=== PATIENT | female | born 1945 | race Caucasian/White ===

== ENCOUNTER 2019-02-02 07:29 | Day surgery (SDC) | payer MEDICARE ==
[~2019-02-02] VITALS: Ht 170.2 cm; Wt 79.5 kg
[~2019-02-02 07:29] MED LIST: ASPI81CH PO; FISH1000; GLIM2 PO; LO-DOSE ASPIRIN81 MG PO; NORT25 PO; Prinivil10 MG PO; SITA100T2 PO; TRAM50 PO; VITAMINS
--- NOTE | 2019-02-02 08:32 | NUR ---
02/02/19 0832 Margarita Rivera CALL LIGHT WITHIN REACH
== END 2019-02-02 09:40 | disposition home or self-care (01) ==
LOC: ORSCSDS 07:29
PROVIDERS: Ophthalmology
PROC: 08RJ3JZ Replacement of Right Lens with Synthetic Substitute, Percutaneous Approach (ICD-10-PCS; principal; 2019-02-02 09:00)
DX: H25.11 Age-related nuclear cataract, right eye (principal); I10 Essential (primary) hypertension; E11.9 Type 2 diabetes mellitus without complications; Z79.899 Other long term (current) drug therapy
CPT/HCPCS: 82947; J2001; J2250; J3010; J3301; J7040; J7120; V2632

== ENCOUNTER 2019-02-16 07:23 | Day surgery (SDC) | payer MEDICARE ==
[~2019-02-16] VITALS: Ht 170.2 cm; Wt 79.8 kg
[2019-02-16] MEDS ORDERED: PREG100 PO (08:18)
[2019-02-16] MEDS ORDERED: Hair, Skin & N1 EACH PO (08:19)
[2019-02-16] MEDS ORDERED: CYAN1000I PO (08:19)
--- NOTE | 2019-02-16 08:26 | NUR ---
02/16/19 0826 Elsa Rich V PT RESTING IN BED, SIDE RAILS IN PLACE, CALL LIGHT WITHIN REACH, VSS. PT TEACHING COMPLETED.
== END 2019-02-16 11:04 | disposition home or self-care (01) ==
LOC: ORSCSDS 07:23
PROVIDERS: Ophthalmology
PROC: 08RK3JZ Replacement of Left Lens with Synthetic Substitute, Percutaneous Approach (ICD-10-PCS; principal; 2019-02-16 09:00)
DX: H25.12 Age-related nuclear cataract, left eye (principal); E11.36 Type 2 diabetes mellitus with diabetic cataract; Z79.82 Long term (current) use of aspirin; Z79.84 Long term (current) use of oral hypoglycemic drugs; Z79.899 Other long term (current) drug therapy
CPT/HCPCS: 82947; J2001; J2250; J3010; J3301; J7120; V2632

== ENCOUNTER 2020-07-09 10:32 | Day surgery (SDC) | payer MEDICARE ==
[~2020-07-09] VITALS: Ht 170.2 cm; Wt 78.7 kg
[~2020-07-09 10:32] MED LIST changes: +CYAN1000I PO; +Hair, Skin & N1 EACH PO; +PREG100 PO
--- NOTE | 2020-07-09 13:32 | NUR ---
07/09/20 1332 BILL MORATAYA PATIENT TO STEP DOWN - RECEIVED REPORT FROM BRIANNA MOTTA. PATIENT DENIES PAIN AT THIS TIME, DENIES NAUSEA/VOMITING. ASSISTED TO RECLINER. PT TOLERATING PO INTAKE. S.O. THOR TO BEDSIDE. VSS. PATIENT DENIES NEED FOR ORAL PAIN MEDICATIONS PRIOR TO DISCHARGE. ENGAGED IN DISCHARGE TEACHING AND ALL QUESTIONS ASKED AND ANSWERED. IV DC'D. PATIENT DRESSED WITH ASSISTANCE FROM S.O
== END 2020-07-09 13:32 | disposition home or self-care (01) ==
LOC: ORSCSDS 10:32
PROVIDERS: Podiatrist Foot & Ankle Surgery
PROC: 0QBR0ZZ Excision of Left Toe Phalanx, Open Approach (ICD-10-PCS; principal; 2020-07-09 12:00)
DX: M89.8X7 Other specified disorders of bone, ankle and foot (principal); L89.892 Pressure ulcer of other site, stage 2; I10 Essential (primary) hypertension; E78.5 Hyperlipidemia, unspecified; E11.40 Type 2 diabetes mellitus with diabetic neuropathy, unspecified; Z79.899 Other long term (current) drug therapy
CPT/HCPCS: 82947; J0690; J1100; J2250; J2405; J2704; J3010; J7120

== ENCOUNTER → 2021-12-30 | Outpatient (CLI) | payer MEDICARE ==
[2021-12-31 20:02] LABS: Creatinine, Urine Random 72.6 mg/dL (27.00-270.00); Microalb/Creat Ratio UR, Rand 9.518 mg/g (0.000-30.000); Microalbumin, Random Urine 6.91 mg/L (0.000-20.000)
== END | disposition home or self-care (01) ==
LOC: LAB SHORT 15:20 → LAB 15:20
PROVIDERS: Family Medicine
DX: E11.40 Type 2 diabetes mellitus with diabetic neuropathy, unspecified (principal); E78.2 Mixed hyperlipidemia; I10 Essential (primary) hypertension
CPT/HCPCS: 82043; 82570

== ENCOUNTER 2022-02-28 07:11 | Day surgery (SDC) | payer MEDICARE ==
[~2022-02-28] VITALS: Ht 170.2 cm; Wt 80.5 kg
== END 2022-02-28 09:45 | disposition home or self-care (01) ==
LOC: ORSCSDS 07:11
PROVIDERS: Surgery
PROC: 0DBP8ZX Excision of Rectum, Via Natural or Artificial Opening Endoscopic, Diagnostic (ICD-10-PCS; principal; 2022-02-28 08:30)
DX: Z12.11 Encounter for screening for malignant neoplasm of colon (principal); Z86.010 Personal history of colon polyps; D12.8 Benign neoplasm of rectum; E11.9 Type 2 diabetes mellitus without complications; K21.9 Gastro-esophageal reflux disease without esophagitis; E78.5 Hyperlipidemia, unspecified; I10 Essential (primary) hypertension; Z79.84 Long term (current) use of oral hypoglycemic drugs; Z79.899 Other long term (current) drug therapy
CPT/HCPCS: 82947; 88305; J2704; J7120

== ENCOUNTER → 2023-08-14 | Outpatient (CLI) | payer MEDICARE | LOC: LAB 20:20 → LAB SHORT 20:20 | DX: R30.0 Dysuria (principal) | CPT/HCPCS: 87077; 87086; 87186 ==

== ENCOUNTER → 2024-07-13 | Outpatient (CLI) | payer OTHER ==
[2024-07-14 14:41] LABS: Microalb/Creat Ratio UR, Rand Unable to Calculate mg/g (0.000-30.000); Microalbumin, Random Urine <5.000 mg/L (0.000-20.000)
== END ==
LOC: LAB SHORT 18:43 → LAB 18:43
PROVIDERS: Internal Medicine Endocrinology, Diabetes & Metabolism
DX: N18.31 Chronic kidney disease, stage 3a (principal)
CPT/HCPCS: 82043; 82570

== ENCOUNTER 2025-05-12 10:28 | Day surgery (SDC) | payer OTHER ==
[~2025-05-12] VITALS: Ht 160 cm; Wt 82.3 kg
[~2025-05-12 10:28] MED LIST changes: +Bupivacaine 0.5% W/EPI 1:200000 SDV 30 ML Vial ONE; +Lidocaine HCl 2% 10 ML SDA ONE
[2025-05-12] MEDS ORDERED: CeFAZolin Sodium 2,000 MG VIAL ONE (10:53)
[2025-05-12] MEDS ORDERED: Lisinopril2.5 MG PO (11:01)
[2025-05-12] MEDS ORDERED: LISI5 PO (11:02)
[2025-05-12] MEDS ORDERED: [UNRECOGNIZED DRUG - OTHER] PO (11:02)
[2025-05-12] MEDS ORDERED: [UNRECOGNIZED DRUG - OTHER] PO (11:04)
[2025-05-12] MEDS ORDERED: ERGO400 PO (11:04)
[2025-05-12] MEDS ORDERED: MULVITA PO (11:04)
[2025-05-12] MEDS ORDERED: Midazolam HCl 1MG / ML 2ML Vial ONE (12:01)
[2025-05-12] MEDS ORDERED: Ketorolac Tromethamine 30mg Vial ONE (12:07)
[2025-05-12] MEDS ORDERED: Ondansetron HCl 2 MG / ML 2ML Vial ONE (12:16)
[2025-05-12] MEDS ORDERED: Dexamethasone Sod Phos 10 MG/ML 1ML VIAL ONE (12:16)
[2025-05-12 12:31] VITALS: BP 128/60
== END 2025-05-12 13:20 | disposition home or self-care (01) ==
LOC: ORSCSDS 10:28
PROVIDERS: Podiatrist Foot & Ankle Surgery
PROC: 0QBQ0ZZ Excision of Right Toe Phalanx, Open Approach (ICD-10-PCS; principal; 2025-05-12 12:00)
DX: M89.8X7 Other specified disorders of bone, ankle and foot (principal); L97.511 Non-pressure chronic ulcer of other part of right foot limited to breakdown of skin; E11.42 Type 2 diabetes mellitus with diabetic polyneuropathy; I10 Essential (primary) hypertension; Z79.84 Long term (current) use of oral hypoglycemic drugs; Z79.899 Other long term (current) drug therapy; E78.5 Hyperlipidemia, unspecified
CPT/HCPCS: 82947; J0690; J1100; J1885; J2003; J2250; J2405; J2704; J7120

== ENCOUNTER 2025-06-28 10:33 | Observation (INO) | payer OTHER ==
[~2025-06-28] VITALS: Wt 82.8 kg
[~2025-06-28 10:33] MED LIST changes: -Bupivacaine 0.5% W/EPI 1:200000 SDV 30 ML Vial ONE; +ERGO400 PO; +LISI5 PO; -Lidocaine HCl 2% 10 ML SDA ONE; +Lisinopril2.5 MG PO; +MULVITA PO; +[UNRECOGNIZED DRUG - OTHER] PO; +[UNRECOGNIZED DRUG - OTHER] PO
[2025-06-28 13:45] VITALS: BP 142/82
[2025-06-28] MEDS ORDERED: PIOG15 PO (13:55)
[2025-06-28] MEDS ORDERED: Crestor40 MG PO ×2 (13:56→13:57)
[2025-06-28] MEDS ORDERED: FLU VACC TS2025(65UP)/MF59C/PF 45 MCG/0.5 ML SYRINGE IM SCH (16:20)
[2025-06-28] MEDS ORDERED: Insulin Human Lispro 100 Units/ML 3ML Syringe SC SCH (16:30)
[2025-06-28 16:32] VITALS: BP 148/69
--- NOTE | 2025-06-28 17:25 | NUR ---
SHIFT SUMMARY: PT ARRIVED AROUND 1430 VIA EMS FROM [facility] FOR STRESS TEST. PT ARRIVED WITH NO COMPLAINTS CP, PRESSURE, TIGHTNESS OR SOB. PT A&OX4. FOLLOWS COMMANDS AND MAKES NEEDS KNOWN TO STAFF. PT HAS BEEN ABLE TO GET UP TO THE BATHROOM WITH SBA. NO COMPLAINTS WITH WALKING TO THE BATHROOM. VSS. MAP >65. PLAN FOR STRESS TEST TOMORROW MORNING. NPO AFTER MIDNIGHT. PT SINUS/ SINUS WILFRED IN THE 50'S. NO SIGNIFICANT EVENTS HAPPENED DURING THIS SHIFT. WILL CONTINUE TO CARE FOR PT TILL END OF SHIFT.
[2025-06-28 20:59] VITALS: BP 152/70
[2025-06-29 00:16] VITALS: BP 127/58
[2025-06-29 03:49] VITALS: BP 150/76
[2025-06-29 04:22] LABS: BASOPHILS ABSOLUTE AUTO 0.06 K/mm3 (0.00-0.23); BASOPHILS PERCENT AUTO 1 % (0-2); EOSINOPHILS ABSOLUTE AUTO 1.02 K/mm3 (0.00-0.68); EOSINOPHILS PERCENT AUTO 9 % (0-6); Hematocrit 39.5 % (33.0-51.0); Hemoglobin 12.7 g/dL (11.5-16.0); IMMATURE GRAN ABSOLUTE AUTO 0.03 K/mm3 (0.00-0.10); IMMATURE GRAN PERCENT AUTO 0 % (0-1); LYMPHOCYTES ABSOLUTE AUTO 3.74 K/mm3 (0.84-5.20); LYMPHOCYTES PERCENT AUTO 33 % (21-46); MONOCYTES ABSOLUTE AUTO 0.80 K/mm3 (0.16-1.47); MONOCYTES PERCENT AUTO 7 % (4-13); Mean Corpuscular HGB Conc 32.2 g/dL (31.5-36.5); Mean Corpuscular Volume 95 fL (80-100); NEUTROPHILS ABSOLUTE AUTO 5.58 K/mm3 (1.96-9.15); NEUTROPHILS PERCENT AUTO 50 % (41-73); NRBC ABSOLUTE 0.00 K/mm3 (0.00-0.02); NRBC Auto 0.0 /100 WBC (0.0-0.2); Platelet Count 264 K/mm3 (150-400); RDW Coefficient Variation 13.8 % (11.7-14.2); RDW Standard Deviation 47.8 fL (35.1-46.3)
--- NOTE | 2025-06-29 04:54 | NUR ---
SHIFT SUMMARY - PT REMAINED A/OX4 T/O SHIFT, DENIES PAIN, COOPERATIVE WITH CARE, VERBALIZES NEEDS. ON RA, SATS ABOVE 93%. BREATHING IS UNLABORED. ON CONTINUOUS CARDIAC TELEMETRY, IN A SINUS RHYTHM, HR IN 60'S. SHE IS INDEPENDENT IN THE ROOM, CALLS FOR ASSISTANCE WHEN NECESSARY. NO ACUTE EVENTS OVERNIGHT. PT HAS BEEN NPO SINCE MIDNIGHT, STRESS TEST AND ECHO TO BE COMPLETED TODAY.
[2025-06-29 05:03] LABS: Anion Gap 9.0 mmol/L (3-11); Blood Urea Nitrogen 25.0 mg/dL (8-24); CO2, Blood 26.0 mmol/L (21-32); Calcium, Blood 8.9 mg/dL (8.5-10.1); Chloride, Blood 109.0 mmol/L (98-108); Creatinine, Blood 0.9 mg/dL (0.40-1.00); Glucose, Blood 131.0 mg/dL (70-99); Potassium, Blood 4.6 mmol/L (3.5-5.5); Sodium, Blood 139.0 mmol/L (136-145)
[2025-06-29 07:43] VITALS: BP 129/85
[2025-06-29] MEDS ORDERED: Multivitamins 1 Tab PO SCH (09:00)
[2025-06-29] MEDS ORDERED: Saxagliptin HCl 2.5 MG TABLET PO SCH (09:00)
[2025-06-29] MEDS ORDERED: Enoxaparin 40 MG/0.4 ML SYR SC SCH (09:00)
[2025-06-29 11:41] VITALS: BP 132/67
[2025-06-29] MEDS ORDERED: Aminophylline 250MG / 10ML 10 ML Vial ONE (13:33)
[2025-06-29 15:33] VITALS: BP 138/58
--- NOTE | 2025-06-29 16:49 | NUR ---
SHIFT SUMMARY/TRANSFER OF CARE ASSUMED CARE OF PT AT APPROXIMATELY 0700. PT COMPLETED NM STRESS TEST THIS SHIFT. PT SELF DC'D IV. THIS RN CLEANED AND DRESSED THE SITE. ECHO DONE THIS SHIFT. PT IS AOX4. VSS. NO C/O CHEST PAIN/PRESSURE/TIGHTNESS THIS SHIFT. PT IS INDEPENDENT IN THE ROOM. IS BEDSIDE. CALL LIGHT WITHIN REACH AND PT IS ABLE TO MAKE ALL NEEDS KNOWN. PT TO DC THIS EVENING. TRANSFERRED CARE TO BRIANNA MENJIVAR.
[2025-06-29] MEDS ORDERED: ASPI81CH PO (17:14)
--- NOTE | 2025-06-29 17:15 | NUR ---
discharge note this rn assumed care at 1650, and this rn was overgabriel shepard rn whom was primary until this rn assumed primary care. this rn went over discharge education and follow up appointments. patient at bedside and verbalized understanding.
== END 2025-06-29 17:24 | disposition home or self-care (01) ==
LOC: PCU 10:33
PROVIDERS: ADMIT Student in an Organized Health Care Education/Training Program
DX: R07.89 Other chest pain (principal); E11.22 Type 2 diabetes mellitus with diabetic chronic kidney disease; I12.9 Hypertensive chronic kidney disease with stage 1 through stage 4 chronic kidney disease, or unspecified chronic kidney disease; N18.31 Chronic kidney disease, stage 3a; E11.42 Type 2 diabetes mellitus with diabetic polyneuropathy; E78.5 Hyperlipidemia, unspecified; F41.9 Anxiety disorder, unspecified; Z88.8 Allergy status to other drugs, medicaments and biological substances; Z79.84 Long term (current) use of oral hypoglycemic drugs; Z79.899 Other long term (current) drug therapy
CPT/HCPCS: 36415; 78452; 80048; 82947; 83880; 85025; 93017; 93306; 96372; A9270; A9500; G0378; J0280; J1650; J2785